=== PATIENT | male | born 1965 | race Caucasian/White ===

== ENCOUNTER 2021-04-16 07:09 | Outpatient (CLI) | payer OTHER, SELFPAY ==
--- NOTE | ~2021-04-16 | US_ITS ---
EXAMINATION: US abdomen limited EXAM DATE: 04/16/2021 07:37 INDICATION: Dyspepsia TECHNIQUE: Multiple grayscale and Doppler images of the abdomen right upper quadrant were obtained (b y a technologist who performed the scan) and subsequently reviewed. There is no prior study for milind branch. FINDINGS: The pancreatic head and body are normal in appearance. The pancreatic tail is not visualized. There is echogenic liver parenchyma, hepatic steatosis. There are no focal liver lesions identified. Th ere is no evidence of intrahepatic biliary duct dilation. Portal venous flow was seen in the hepatop edal, normal direction and has normal Doppler waveform. No right-sided hydronephrosis. Common bile duct measures 5 mm, which is normal. The gallbladder wall is normal in thickness, with ex pected amount of distention. No sonographic evidence of pericholecystic fluid. There is no cholelit hiases. Technologist performing exam reports patient did not demonstrate sonographic Mckoy's sign. Please note that this sign is less reliable in patients who have received pain medication. IMPRESSION: 1. Hepatic steatosis. Reviewed, dictated and finalized at location A. IRER AND CHECKER IMPRESSION: 1. Hepatic steatosis.
--- NOTE | ~2021-04-16 | XR_ITS ---
EXAMINATION: XR barium swallow DATE: 04/16/2021 09:48 PATIENT DAY COORDINATOR INDICATION: Dyspepsia TECHNIQUE: Thick barium contrast with gas effervescent crystals were administered orally. Fluoroscop ic images of the esophagus were obtained in various projections. The hypopharynx was also examined. T hereafter, overhead images of the thoracic esophagrus were performed. Fluroscopy time 0.7 minutesDap 10.1 FINDINGS: The esophagus is normal in caliber, without mucosal lesions or strictures. There is normal esophageal peristalsis. There is no hiatal hernia. No discreet episode of gastroesophageal reflux i s seen during the course of this study. IMPRESSION: 1. Normal barium esophagram. Reviewed, dictated and finalized at location B. ENT DAY COORDINATOR
--- NOTE | ~2021-04-16 | XR_ITS ---
EXAMINATION: XR chest 2V EXAM DATE: 04/16/2021 07:30 INDICATION: Chest pain shortness of breath x 1 year upon exertion. TECHNIQUE: Frontal and lateral projections of the chest obtained and reviewed. Comparison is made to prior examination from 06/21/2017. FINDINGS: The lungs are clear. There are no pleural effusions. The cardiomediastinal silhouette is within normal limits. There is no pneumothorax suspected. The bones and soft tissues are unremarkab le. IMPRESSION: No acute cardiopulmonary findings. Reviewed, dictated and finalized at location A. SOM TECH
== END 2021-04-16 07:10 | disposition home or self-care (01) ==
LOC: CHSIMG 07:11
PROVIDERS: PCP Internal Medicine; Visit Provider Internal Medicine
DX: R10.13 Epigastric pain (principal); R07.9 Chest pain, unspecified
CPT/HCPCS: 71046; 74220; 76705

== ENCOUNTER 2021-05-21 01:52 | Day surgery (SDC) | payer OTHER, SELFPAY ==
[2021-05-13 15:00] VITALS: BMI 30.2
[2021-05-21 06:49] VITALS: BP 123/85; PULSE 91; RESP 18; TEMP 36.2; O2SAT 99; BMI 30.9
[2021-05-21] MEDS: LACTATED RINGERS 1,000 ML 150 ML IV CONT (07:01)
--- NOTE | 2021-05-21 07:28 | P.PNAN_ITS ---
Anes - Initial Pre Proc Eval Procedure: Operation Date: 05/21/21 08:00 Proposed Procedures p Colonoscopy - Cristhian Dunbar MD Date/Time: 05/21/21 07:28 Surgeon: Cristhian Dunbar MD Pre Op Diagnosis: positive cologuard Patient Data Age: 56 Gender: M Height: 1.73 m Weight: 92.3 kg Last Vital Signs Temp 97.2 F L 05/21/21 06:49 Pulse 91 05/21/21 06:49 Resp 18 05/21/21 06:49 BP 123/85 05/21/21 06:49 Pulse Ox 99 05/21/21 06:49 Allergies Allergy/AdvReac Type Severity Reaction Status Date / Time No Known Allergies Allergy Verified 05/21/21 06:48 Home Medications Medication Instructions Recorded Confirmed Type aspirin 81 mg tablet,delayed 81 mg PO DAILY 04/07/19 05/13/21 History release cetirizine 10 mg capsule 10 mg PO DAILY PRN 05/28/20 05/13/21 History vitamin B complex 1 tablet PO DAILY 05/28/20 05/13/21 History ascorbic acid (vitamin C) 500 mg PO DAILY 05/13/21 05/13/21 History Patient hx anesthesia problems: none Family hx anesthesia problems: none Results Review: All pre-operative results and documents have been reviewed as part of the pre-operative evaluation. [facility] Past Medical History Medical History High cholesterol Surgical History Surgical History History of appendectomy History of tonsillectomy Family History Family History Father Patient's father is , Onset Age: 77 Diabetes mellitus Family history of coronary artery disease Grandparent Family history of coronary artery disease Sibling Family history of coronary artery disease Other Malignant neoplasm of prostate Other Family history of cardiovascular disease Social History Social History Smoking status: Never smoker Alcohol intake: current Alcohol use details: occasionally Substance use: never Substance use type: does not use Living arrangements: with family 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 Informed Consent: The patient's anesthetic plan and its attendant risks and benefits were discussed with the patient/family/POA. Questions were solicited and answers provided to the satisfaction of the patient/family/POA.
--- NOTE | 2021-05-21 07:44 | WPDGICN ---
Assessment and Plan Assessment and plan (1) Positive colorectal cancer screening using Cologuard test: Code(s): R19.5 - Other fecal abnormalities Status: Acute Assessment and Plan: Patient recently found a positive Cologuard test. For this reason screening colonoscopy will be performed today. Further recommendations will be given after endoscopy. (2) Rectal bleeding: Code(s): K62.5 - Hemorrhage of anus and rectum Status: Acute Assessment and Plan: Patient has intermittent rectal bleeding attributed to hemorrhoids. Hemorrhoids were identified by colonoscopy 10 years ago. High-fiber diet with fiber supplements encouraged. If rectal bleeding persists hemorrhoid surgery may need to be considered. GI Consult Note Consult date/time: 05/21/21 07:44 HPI: David Flores is a 56 year old male Presents for colonoscopy. Patient recently found to have positive Cologuard test. Patient reports intermittently he will have bright red blood per rectum attributed to hemorrhoids. He has occasional rectal discomfort. Patient reports his bowel habits are normal. When he has bleeding is typically associated with hard bowel movements. Denies any weight loss. Family history noncontributory. Patient last had a colonoscopy by our records 2011 that was unremarkable aside from hemorrhoids. He presents today for colonoscopy because of Cologuard test. Review of Systems Review of Systems: All systems reviewed & are unremarkable except as noted in HPI and below PMFSH Past Medical History Medical History High cholesterol Surgical History Surgical History History of appendectomy History of tonsillectomy Family History Family History Father Patient's father is , Onset Age: 77 Diabetes mellitus Family history of coronary artery disease Grandparent Family history of coronary artery disease Sibling Family history of coronary artery disease Other Malignant neoplasm of prostate Other Family history of cardiovascular disease Social History Social History Smoking status: Never smoker Alcohol intake: current Alcohol use details: occasionally Substance use: never Substance use type: does not use Living arrangements: with family 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 Spiritual care concerns: No Meds Home Medications and Allergies Home Medications Medication Instructions Recorded Confirmed Type aspirin 81 mg tablet,delayed 81 mg PO DAILY 04/07/19 05/13/21 History release cetirizine 10 mg capsule 10 mg PO DAILY PRN 05/28/20 05/13/21 History vitamin B complex 1 tablet PO DAILY 05/28/20 05/13/21 History ascorbic acid (vitamin C) 500 mg PO DAILY 05/13/21 05/13/21 History Allergies Allergy/AdvReac Type Severity Reaction Status Date / Time No Known Allergies Allergy Verified 05/21/21 06:48 Vital Signs Vital Signs - 24 hr 05/21/21 06:49 Temperature 97.2 F L Pulse Rate 91 Respiratory Rate 18 Blood Pressure 123/85 Pulse Oximetry 99 Exam Narrative: Physical exam reveals patient to be alert. Vital signs stable. HEENT exam is unremarkable. Patient is anicteric. Lungs are clear to auscultation and percussion. Heart is without murmur or extra sounds. Abdominal exam bowel sounds are present soft nontender with no hepatosplenomegaly. Digital external rectal exam is normal.
[2021-05-21 08:09] VITALS: BP 108/63; PULSE 76; RESP 20; O2SAT 95
[2021-05-21 08:19] VITALS: BP 94/57; PULSE 72; RESP 15; O2SAT 97
[2021-05-21 08:29] VITALS: BP 112/71; PULSE 70; RESP 16; O2SAT 95
== END 2021-05-21 08:47 | disposition home or self-care (01) ==
PROVIDERS: PCP Internal Medicine; Visit Provider Internal Medicine Gastroenterology
PROC: 0DJD8ZZ Inspection of Lower Intestinal Tract, Via Natural or Artificial Opening Endoscopic (ICD-10-PCS; CPT 45378; principal; 2021-05-21 08:00)
DX: R19.5 Other fecal abnormalities (principal); K62.5 Hemorrhage of anus and rectum; K64.8 Other hemorrhoids; K57.30 Diverticulosis of large intestine without perforation or abscess without bleeding; E78.00 Pure hypercholesterolemia, unspecified; Z79.82 Long term (current) use of aspirin; E66.9 Obesity, unspecified; Z68.30 Body mass index [BMI] 30.0-30.9, adult
CPT/HCPCS: 45378; J2704; J7120

== ENCOUNTER 2021-11-07 01:00 | Day surgery (SDC) | payer OTHER, SELFPAY ==
[2021-11-06 13:09] VITALS: BMI 30.4
[2021-11-07] VITALS (8 sets, daily range): BP systolic 98–123; BP diastolic 68–88; PULSE 63–73; RESP 12–17; TEMP 36.5; O2SAT 94–99; BMI 31.4
[2021-11-07 08:09] LABS: Basophils Absolute Auto 0.1 K/mm3 (0.0-0.1); Basophils Percent Auto 0.8 % (0.2-1.2); Eosinophils Absolute Auto 0.3 K/mm3 (0-0.3); Eosinophils Percent Auto 4.7 % (0-4.4); Hematocrit 45.1 % (42.0-52.0); Hemoglobin 15.3 g/dL (14.0-18.0); Immature Granulocyte Absolute 0.02 K/mm3 (0.00-0.031); Immature Granulocyte Percent A 0.3 % (0-0.5); Lymphocytes Absolute Auto 2.02 K/mm3 (0.9-3.2); Lymphocytes Percent Auto 27.9 % (18.3-44.2); Mean Corpuscular HGB Conc 33.9 g/dl (32-36); Mean Corpuscular Hemoglobin 30.2 pg (26-34); Mean Platelet Volume 8.8 fl (7.4-10.4); Monocytes Absolute Auto 0.6 K/mm3 (0.1-0.6); Monocytes Percent Auto 8.6 % (2.6-8.5); Neutrophils Absolute Auto 4.2 K/mm3 (1.3-6.7); Neutrophils Percent Auto 57.7 % (45.5-73.1); Platelet Count Result 242 k/mm3 (150-375); Red Blood Count 5.07 M/mm3 (4.6-6.20); Red Cell Distribution Width 12.6 % (11.5-14.5); White Blood Count 7.2 K/mm3 (4.5-10.0)
[2021-11-07 08:22] LABS: Anion Gap 6 mmol/L (8-16); Blood Urea Nitrogen 19 mg/dL (9-20); Calcium 8.6 mg/dL (8.4-10.2); Carbon Dioxide 31 mmol/L (22-30); Chloride 102 mmol/L (98-107); Estimated CRCL calculation 80 ml/min; Estimated Glomerular Filt Rate > 60; Glucose 96 mg/dL (65-110); Potassium 4.1 mmol/L (3.4-5.0); Sodium 139 mmol/L (137-145)
[2021-11-07 08:35] LABS: INR 0.9
--- NOTE | 2021-11-07 09:14 | PM.IMHP ---
H&P: HPI History of Present Illness Date/Time: 11/07/21 09:15 Chief Complaint: Patient is here for cardiac catheterization Narrative: this is a 56-year-old patient with past history of hyperlipidemia, GERD, who was evaluated for chest pain. Underwent stress test that was negative for ischemia however he reports strong family history for coronary artery disease as his dad had myocardial infarction at age 62. He describes his chest pain mainly on exertion and after doing the stress test he called our office because he continued to have chest pain and pressure upon exertion like cutting g shows it resolves when he rests. Denies shortness of breath, lower extremity edema, dizziness or syncope. Review of Systems Constitutional: Constitutional: Denies chills, Denies fever(s) and Denies poor appetite Eyes: Eyes: Denies eye discharge, Denies loss of vision, Denies eye pain and Denies photophobia ENT: Denies dizziness, Denies epistaxis, Denies nasal congestion and Denies sore throat Cardiovascular: Cardiovascular: Reports chest pain, Denies syncope, Denies pedal edema, Denies leg edema, Denies palpitations, Denies dyspnea, Denies dyspnea on exertion and Denies orthopnea Respiratory: Respiratory: Denies cough, Denies dyspnea, Denies dyspnea on exertion and Denies wheezing Gastrointestinal: Gastrointestinal: Denies abdominal pain, Denies diarrhea, Denies nausea and Denies vomiting Genitourinary: Genitourinary: Denies hematuria, Denies genital lesions and Denies dysuria Musculoskeletal: Musculoskeletal: Denies arthralgias, Denies joint swelling and Denies numbness Integumentary/Breasts: Skin/Breast: Denies pruritus and Denies rash Neurologic: Denies dizziness, Denies syncope, Denies loss of vision and Denies numbness Psychiatric: Psychiatric: Denies anxiety and Denies depression Endocrine: Endocrine: Denies cold intolerance, Denies heat intolerance and Denies palpitations Hematologic/Lymphatic: Hematologic/Lymphatic: Denies easy bleeding and Denies easy bruising Allergic/Immunologic: Allergic/Immunologic: Denies urticaria and Denies wheezing PMFSH Past Medical History Medical History High cholesterol Surgical History Surgical History History of appendectomy History of tonsillectomy Family History Family History Father Patient's father is , Onset Age: 77 Diabetes mellitus Family history of coronary artery disease Grandparent Family history of coronary artery disease Sibling Family history of coronary artery disease Other Malignant neoplasm of prostate Other Family history of cardiovascular disease Social History Social History Smoking status: Never smoker Second hand tobacco smoke exposure: No Alcohol intake: current Drinks per week: 2 Alcohol use details: occasionally. Substance use: never Substance use type: does not use Living arrangements: with family Additional occupation/education comments: [employer] Spiritual care concerns: No Meds Home Medications and Allergies Home Medications Medication Instructions Recorded Confirmed Type aspirin 81 mg tablet,delayed 81 mg PO DAILY 04/07/19 11/06/21 History release (Adult Low Dose Aspirin) cetirizine 10 mg capsule (All Day 10 mg PO DAILY PRN Allergic 05/28/20 11/06/21 History Allergy (cetirizine)) Symptoms vitamin B complex (B 1 tablet PO DAILY 05/28/20 11/06/21 History Complex-Vitamin B12 tablet) ascorbic acid (vitamin C) 500 mg 500 mg PO DAILY 05/13/21 11/06/21 History tablet alirocumab 75 mg/mL subcutaneous 75 mg subcut Q14D 11/06/21 11/06/21 History pen injector (Praluent Pen) cholecalciferol (vitamin D3) 50 2,000 unit PO DAILY 11/06/21 11/06/21 History mcg (2,000 unit) tablet (Vi
--- NOTE | 2021-11-07 09:18 | WPDMODSED ---
Moderate Sedation Note-Pt Data Patient Data Diagnosis: Exertion or chest pain Present Complaint: chest pain Procedure to be performed/Plan: coronary angiogram and left heart catheterization Allergies Allergy/AdvReac Type Severity Reaction Status Date / Time No Known Allergies Allergy Verified 11/07/21 07:48 Home Medications Medication Instructions Recorded Confirmed Type aspirin 81 mg tablet,delayed 81 mg PO DAILY 04/07/19 11/06/21 History release (Adult Low Dose Aspirin) cetirizine 10 mg capsule (All Day 10 mg PO DAILY PRN Allergic 05/28/20 11/06/21 History Allergy (cetirizine)) Symptoms vitamin B complex (B 1 tablet PO DAILY 05/28/20 11/06/21 History Complex-Vitamin B12 tablet) ascorbic acid (vitamin C) 500 mg 500 mg PO DAILY 05/13/21 11/06/21 History tablet alirocumab 75 mg/mL subcutaneous 75 mg subcut Q14D 11/06/21 11/06/21 History pen injector (Praluent Pen) cholecalciferol (vitamin D3) 50 2,000 unit PO DAILY 11/06/21 11/06/21 History mcg (2,000 unit) tablet (Vitamin D3) docosahexaenoic acid (dha)-epa 1 cap PO DAILY 11/06/21 11/06/21 History capsule zinc gluconate 50 mg tablet 50 mg PO DAILY 11/06/21 11/06/21 History Current Medications: Active Medications Sodium Chloride (Normal Saline Iv) 500 mls @ 100 mls/hr IV CONT .Q5H ELVIN Sedation/Anesthesia: No previous sedation/anesthesia problems (including family history). [facility] Past Medical History Medical History High cholesterol Surgical History Surgical History History of appendectomy History of tonsillectomy Family History Family History Father Patient's father is , Onset Age: 77 Diabetes mellitus Family history of coronary artery disease Grandparent Family history of coronary artery disease Sibling Family history of coronary artery disease Other Malignant neoplasm of prostate Other Family history of cardiovascular disease Social History Social History Smoking status: Never smoker Second hand tobacco smoke exposure: No Alcohol intake: current Drinks per week: 2 Alcohol use details: occasionally. 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 care concerns: No Mod Sed Physical Exam Physical Exam Pre Procedural Exam: Normal: Appearance, Eyes, Ears, Nose, Neck, Throat, Airway, Lungs, Heart Size, Heart Rate, Heart Rhythm, Neuro Exam, Abdomen, Liver, Kidneys, Spleen, Breasts, Genitalia, Extremities and Skin Hours since solid foods: 8 Hours since liquid intake: 8 Mallampati Classification: class 1 Internal Medicine - PN: Obj Da Vital Signs Vital Signs: Vital Signs - 24 hr 11/07/21 07:52 Temperature 36.5 C Pulse Rate 73 Respiratory Rate 17 Blood Pressure 122/81 Pulse Oximetry 98 Oxygen Delivery Room Air Meds/Results Medications: Active Medications Generic Name Dose Route Start Last Admin Trade Name Freq PRN Reason Stop Dose Admin Sodium Chloride 500 mls @ 100 mls/hr 11/07/21 07:30 Normal Saline Iv IV CONT .Q5H ELVIN Labs CBC & Chem 7: 11/07/21 07:50 11/07/21 07:50 Labs: Laboratory Results - last 24 hr 11/07/21 11/07/21 11/07/21 07:50 07:50 07:50 WBC 7.2 RBC 5.07 Hgb 15.3 Hct 45.1 MCV 89.0 MCH 30.2 MCHC 33.9 RDW 12.6 Plt Count 242 MPV 8.8 Immature Gran % (Auto) 0.3 Neut % (Auto) 57.7 Lymph % (Auto) 27.9 [place] % (Auto) 8.6 H Eos % (Auto) 4.7 H Baso % (Auto) 0.8 Lymph # (Auto) 2.02 [place] # (Auto) 0.6 Eos # (Auto) 0.3 Baso # (Auto) 0.1 Abs Immat Gran (auto) 0.02 Absolute Neuts (auto) 4.2 Absolute Nu
--- NOTE | 2021-11-07 09:19 | WPDCARDPROC ---
Cardiac Cath Procedure Note Date of procedure:: 11/07/21 Performing physician:: Agustina Medley MD date of service November 07, 2021 Indication:: exertion chest pain Brief clinical history:: this is a 56-year-old patient with past history of hyperlipidemia, GERD, who was evaluated for chest pain.? Underwent stress test that was negative for ischemia however he reports strong family history for coronary artery disease as his dad had myocardial infarction at age 62.? He describes his chest pain mainly on exertion and after doing the stress test he called our office because he continued to have chest pain and pressure upon exertion like cutting g shows it resolves when he rests.? Denies shortness of breath, lower extremity edema, dizziness or syncope. Procedure Procedure performed:: 1-Moderate sedation that started at 9:22 a.m.and ended at 951 using 2mg of Versed and 50mcg fentanyl. The registered nurse was luis manuel sequeira. 2-Selective left and right coronary angiogram. 3-Left heart catheterization with measurement of LVEDP and measurement of gradient across aortic valve. 3- LV angiogram. 4-Right common femoral arterial angiogram. 5-Deployment of 6 [place] Angio-Seal. Sedation/Medication given:: Moderate sedation. Access site:: Right common femoral artery. Estimated blood loss:: 10cc Procedure note:: After informed consent patient was brought in to salvage laborer with the was draped and prepped in usual manner. Moderate sedation was given and the right groin was infiltrated using 1% lidocaine. Five [place] sheath was obtained using micropuncture needle and the modified Seldinger technique. Selective left coronary angiogram was done using JL4 catheter with the tip of the catheter placed in the left main coronary artery. Selective right coronary angiogram was done using JR4 catheter with the tip of the catheter placed to the right coronary artery. After that 5 [place] pigtail catheter was advanced across the aortic valve into the left ventricle with measurement of LVEDP and measurement of gradient across aortic valve. LV angiogram was done as well.Right common femoral arterial angiogram was done. Findings:: 1- left coronary artery is a large artery that divides into large LAD, large circumflex artery. Left main is Free of disease. 2- left anterior descending artery is a large artery that runs and wraps around the apex. Free of disease. Large diagonal branch proximally free of disease. 3- leftcircumflex artery is a large artery Free of disease. Small to medium-sized OM1 free of disease and large OM2 free of disease. 4- right coronary artery is Large artery and dominant and free of disease 5- LVEDP was 10 mm Hgand no gradient across aortic valve. 5- LV angiogram shows ejection fraction 65%. No wall motion abnormalities. 6- opening arterial pressure was 130/80 and closing pressure was 120 over 70 7- right femoral artery angiogram shows no significant disease in the right common femoral artery. Conclusion:: - no CAD. Assessment and Plan Assessment and plan (1) Exertional chest pain: Code(s): R07.9 - Chest pain, unspecified Status: Acute Plan continue risk factor modification for CAD
--- NOTE | 2021-11-07 11:07 | SUR.PHASEII ---
This RN called & spoke with . Informed her of discharge time and instructions.
== END 2021-11-07 12:56 | disposition home or self-care (01) ==
PROVIDERS: PCP Internal Medicine; Visit Provider Internal Medicine Cardiovascular Disease
PROC: 4A023N7 Measurement of Cardiac Sampling and Pressure, Left Heart, Percutaneous Approach (ICD-10-PCS; CPT 93452; principal; 2021-11-07 09:00)
DX: R07.9 Chest pain, unspecified (principal); E78.5 Hyperlipidemia, unspecified; K21.9 Gastro-esophageal reflux disease without esophagitis; Z82.49 Family history of ischemic heart disease and other diseases of the circulatory system; Z79.82 Long term (current) use of aspirin
CPT/HCPCS: 36415; 80048; 85025; 85610; 93458; C1760; C1887; C1894; G0269; J1644; J2250; J3010; J7040

== ENCOUNTER 2021-11-20 09:49 | Outpatient (CLI) | payer OTHER, SELFPAY ==
--- NOTE | ~2021-11-20 | CT_ITS ---
EXAMINATION: CTA chest DATE: 11/20/2021 10:13 INDICATION: Shortness of breath, chest tightness. Family history of aneurysm. TECHNIQUE: Computed tomography angiography (CTA) of the chest was performed with 100 mL Omnipaque-350 intravenous contrast timed to evaluate the pulmonary arteries. Coronal maximum intensity projection 3D-reconstructions were created by the technologist. Automated exposure control and iterative reconst ruction technique were employed. Exam dose: 516.52 mGy-cm total exam DLP. COMPARISON: 04/16/2021 PA and lateral chest FINDINGS: The ascending aorta measures up to 4.5 cm diameter. 2.6 cm diameter at the mid aortic arch and 2.2 cm diameter the descending thoracic aorta, normal. Normal heart size. No pericardial or pleural effusion. No hilar or mediastinal mass lesion or lymphadenopathy. Mild probably lower lobe dependent atelectasis. No pulmonary consolidation or mass lesion is detected . Small probable fissural node of the lateral aspect of the left greater fissure (series 4 image 59). Hepatic steatosis. Included portions of the adrenal glands are unremarkable. Diffuse idiopathic skeletal hyperostosis of the thoracic spine. Degenerative disease in the lower cer vical spine. IMPRESSION: 4.5 cm ascending aortic aneurysm; no aortic dissection Hepatic steatosis Reviewed, dictated and finalized at Location A. Reviewed, dictated and finalized at location B.
== END 2021-11-20 09:50 | disposition home or self-care (01) ==
LOC: ANHIMG 09:50
PROVIDERS: PCP Internal Medicine; Visit Provider Internal Medicine Cardiovascular Disease
DX: R07.89 Other chest pain (principal); I71.4 Abdominal aortic aneurysm, without rupture; K76.0 Fatty (change of) liver, not elsewhere classified
CPT/HCPCS: 71275; Q9967

== ENCOUNTER 2022-01-30 09:14 | Outpatient (CLI) | payer OTHER, SELFPAY ==
--- NOTE | ~2022-01-30 | XR_ITS ---
EXAMINATION: XR heel RT min 2V DATE: 01/30/2022 09:52 INDICATION: Right Achilles tendinitis, chronic. TECHNIQUE: 2 views of right calcaneus on 3 radiographs were obtained. COMPARISON: None. FINDINGS: Bone alignment is normal. No fracture. There is mild osteoarthritis of the ankle joint and talonavicular joint characterized by tiny osteophytes. There are enthesophytes at the posterior and p lantar aspects of calcaneal tuberosity. IMPRESSION: 1. Polyarticular osteoarthritis. Reviewed, dictated and finalized at location A. TABLE THINNER
--- NOTE | ~2022-01-30 | XR_ITS ---
EXAMINATION: XR ankle RT min 3V DATE: 01/30/2022 09:52 INDICATION: Chronic right Achilles tendinitis. TECHNIQUE: 4 views of right ankle were obtained. COMPARISON: None. FINDINGS: Bone alignment is normal. No fracture. There is heterotopic ossification distal to medial m alleolus. There is mild osteoarthritis of the ankle and talonavicular joints. There are enthesophytes at the posterior and plantar aspects of calcaneal tuberosity. IMPRESSION: 1. Polyarticular osteoarthritis. Reviewed, dictated and finalized at location A. 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
== END 2022-01-30 09:15 | disposition home or self-care (01) ==
PROVIDERS: PCP Internal Medicine; Visit Provider Internal Medicine Cardiovascular Disease
DX: I71.21 Aneurysm of the ascending aorta, without rupture (principal); Z82.49 Family history of ischemic heart disease and other diseases of the circulatory system; M76.61 Achilles tendinitis, right leg; M15.9 Polyosteoarthritis, unspecified
CPT/HCPCS: 73610; 73650

== ENCOUNTER 2022-12-22 15:30 | Outpatient (CLI) | payer OTHER, SELFPAY ==
--- NOTE | ~2022-12-22 | XR_ITS ---
EXAM: XR abdomen obstructive series DATE: 12/22/2022 15:55 HISTORY: EPIGASTRIC pain, bloating X 12 HOURS . COMPARISON: None available. FINDINGS: Clear lung bases. Normal bowel gas pattern. No organomegaly. No abnormal abdominal calcifi cation. Regional bones and soft tissues normal for age. IMPRESSION: No radiographic evidence of obstruction or ileus. Reviewed, dictated and finalized at location K.
[2022-12-22 15:50] LABS: Appearance Urine Clear (Clear); Basophils Absolute Auto 0.04 K/mm3 (0.00-0.10); Basophils Percent Auto 0.4 % (0.0-1.0); Bilirubin Urine Negative (Negative); Blood Urine Negative (Negative); Color Urine Yellow (Yellow); Eosinophils Absolute Auto 0.33 K/mm3 (0.02-0.50); Eosinophils Percent Auto 3.3 % (1.0-6.0); Glucose Urine UA Negative (Negative); Hematocrit 44.8 % (40.0-54.0); Hemoglobin 15.2 g/dL (14.0-18.0); Immature Granulocyte Absolute 0.02 K/mm3 (0.00-0.00); Immature Granulocyte Percent A 0.2 % (0.0-0.0); Ketones Urine Negative (Negative); Leukocyte Esterase Ur Negative (Negative); Lymphocytes Absolute Auto 2.02 K/mm3 (1.10-4.50); Mean Corpuscular HGB Conc 33.9 g/dL (32.0-36.0); Mean Corpuscular Hemoglobin 30.5 pg (27.0-31.0); Mean Corpuscular Volume 89.8 fL (78.0-102.0); Mean Platelet Volume 8.9 fl (8.7-11.0); Monocytes Absolute Auto 0.74 K/mm3 (0.10-0.90); Monocytes Percent Auto 7.3 % (2.0-11.0); Neutrophils Percent Auto 68.8 % (50.0-70.0); Nitrate Urine Negative (Negative); Platelet Count Result 250 K/mm3 (150-420); Protein Urine Negative (Negative); Red Blood Count 4.99 M/mm3 (4.70-6.10); Specific Grav Ur 1.025 (1.010-1.020); Urobilinogen Urine 0.2 mg/dL (0.2-1.0); White Blood Count 10.1 K/mm3 (4.8-10.8)
[2022-12-22 15:56] LABS: Add Urine Microscopic? NO
[2022-12-22 16:17] LABS: Alanine Aminotransferase 35 U/L (16-63); Albumin Level 3.7 g/dL (3.4-5.0); Alkaline Phosphatase 90 U/L (46-116); Amylase 541 U/L (25-115); Anion Gap 8 mmol/L (8-16); Aspartate Amino Transferase 18 U/L (15-37); Bilirubin,Total 1.3 mg/dL (0.00-1.00); Blood Urea Nitrogen 13 mg/dL (7-18); Calcium 9.1 mg/dL (8.5-10.1); Carbon Dioxide 29 mmol/L (21-32); Chloride 104 mmol/L (98-108); Estimated Glomerular Filt Rate > 60; Glucose 89 mg/dL (70-99); Osmolality Calculated 291 mOsm/kg (285-295); Potassium 4.2 mmol/L (3.5-5.1); Sodium 141 mmol/L (136-145); Total Protein 6.8 g/dL (6.4-8.2)
[2022-12-22 16:44] LABS: Lipase 2815 U/L (16-77)
[2022-12-22 17:15] LABS: Creatine Kinase 123 U/L (39-308); Troponin I 4.5 ng/L (0.00-60.4)
== END 2022-12-22 15:31 | disposition home or self-care (01) ==
LOC: CHSLAB 15:33
PROVIDERS: PCP Internal Medicine; Visit Provider Internal Medicine
DX: R10.9 Unspecified abdominal pain (principal); R14.0 Abdominal distension (gaseous); R10.13 Epigastric pain
CPT/HCPCS: 36415; 74019; 80053; 81003; 82150; 82550; 82553; 83690; 84484; 85025

== ENCOUNTER 2022-12-23 09:55 | Outpatient (CLI) | payer OTHER, SELFPAY ==
--- NOTE | ~2022-12-23 | CT_ITS ---
EXAMINATION: CT abdomen pelvis w con DATE: 12/23/2022 10:21 INDICATION: Acute pancreatitis TECHNIQUE: Computed tomography (CT) of the abdomen and pelvis was performed with 100 mL Omnipaque-350 intravenous contrast. Automated exposure control and iterative reconstruction technique were employe d. The dose-length product was 727.54 mGy-cm. COMPARISON: None FINDINGS: Mild discoid atelectasis at the lingula with additional mild dependent atelectasis in the bilateral l ower lobes. Heart size is normal. No pericardial or pleural effusion. Liver, gallbladder, spleen, antonio ateral adrenal glands and kidneys are normal. There is inflammatory stranding about the uncinate proc ess of the pancreas consistent with acute interstitial pancreatitis. No discrete peripancreatic fluid collections. Normal parenchymal enhancement throughout the pancreas with no evident necrosis. No int ra or extra hepatic biliary ductal dilation and no evident dilation of the main pancreatic duct. Port al, splenic and superior mesenteric veins are all patent. Bowels are unremarkable. Bladder is normal. No free intraperitoneal gas or fluid. No pathologically enlarged abdominal or pelvic lymphadenopathy . Mild lumbar and lower thoracic spondylosis. Mild to moderate bilateral hip osteoarthritis. Anterior osteophytes at the bilateral sacroiliac joints, bridging on the right and nearly bridging on the lef t. IMPRESSION: 1. Radiographically uncomplicated acute interstitial pancreatitis at the uncinate process. Reviewed, dictated and finalized at location A. IMPRESSION: 1. Radiographically uncomplicated acute interstitial pancreatitis at the uncina te process.
== END 2022-12-23 09:56 | disposition home or self-care (01) ==
PROVIDERS: PCP Internal Medicine; Visit Provider Internal Medicine
DX: K85.90 Acute pancreatitis without necrosis or infection, unspecified (principal)
CPT/HCPCS: 74177; Q9967

== ENCOUNTER 2022-12-24 09:08 | Outpatient (CLI) | payer OTHER, SELFPAY ==
[2022-12-24 09:20] LABS: Basophils Absolute Auto 0.03 K/mm3 (0.00-0.10); Basophils Percent Auto 0.5 % (0.0-1.0); Eosinophils Absolute Auto 0.34 K/mm3 (0.02-0.50); Eosinophils Percent Auto 5.1 % (1.0-6.0); Hematocrit 42.2 % (40.0-54.0); Hemoglobin 14.3 g/dL (14.0-18.0); Immature Granulocyte Absolute 0.02 K/mm3 (0.00-0.00); Immature Granulocyte Percent A 0.3 % (0.0-0.0); Lymphocytes Absolute Auto 1.63 K/mm3 (1.10-4.50); Lymphocytes Percent Auto 24.5 % (18.0-42.0); Mean Corpuscular HGB Conc 33.9 g/dL (32.0-36.0); Mean Corpuscular Hemoglobin 30.4 pg (27.0-31.0); Mean Corpuscular Volume 89.8 fL (78.0-102.0); Mean Platelet Volume 8.8 fl (8.7-11.0); Monocytes Absolute Auto 0.64 K/mm3 (0.10-0.90); Monocytes Percent Auto 9.6 % (2.0-11.0); Platelet Count Result 230 K/mm3 (150-420); White Blood Count 6.6 K/mm3 (4.8-10.8)
[2022-12-24 10:06] LABS: Alanine Aminotransferase 25 U/L (16-63); Albumin Level 3.5 g/dL (3.4-5.0); Alkaline Phosphatase 82 U/L (46-116); Amylase 203 U/L (25-115); Anion Gap 6 mmol/L (8-16); Aspartate Amino Transferase 20 U/L (15-37); Bilirubin,Total 1.3 mg/dL (0.00-1.00); Blood Urea Nitrogen 14 mg/dL (7-18); Calcium 9.2 mg/dL (8.5-10.1); Carbon Dioxide 29 mmol/L (21-32); Chloride 105 mmol/L (98-108); Estimated Glomerular Filt Rate > 60; Glucose 95 mg/dL (70-99); Osmolality Calculated 290 mOsm/kg (285-295); Potassium 4.4 mmol/L (3.5-5.1); Sodium 140 mmol/L (136-145); Total Protein 6.6 g/dL (6.4-8.2)
[2022-12-24 10:15] LABS: Lipase 743 U/L (16-77)
== END 2022-12-24 09:09 | disposition home or self-care (01) ==
PROVIDERS: PCP Internal Medicine; Visit Provider Internal Medicine
DX: K85.90 Acute pancreatitis without necrosis or infection, unspecified (principal)
CPT/HCPCS: 36415; 80053; 82150; 83690; 85025

== ENCOUNTER 2022-12-26 10:12 | Outpatient (CLI) | payer OTHER, SELFPAY ==
[2022-12-26 10:32] LABS: Basophils Absolute Auto 0.04 K/mm3 (0.00-0.10); Basophils Percent Auto 0.8 % (0.0-1.0); Eosinophils Absolute Auto 0.25 K/mm3 (0.02-0.50); Eosinophils Percent Auto 4.8 % (1.0-6.0); Hematocrit 43.4 % (40.0-54.0); Hemoglobin 14.8 g/dL (14.0-18.0); Immature Granulocyte Absolute 0.01 K/mm3 (0.00-0.00); Immature Granulocyte Percent A 0.2 % (0.0-0.0); Lymphocytes Percent Auto 34.8 % (18.0-42.0); Mean Corpuscular HGB Conc 34.1 g/dL (32.0-36.0); Mean Corpuscular Hemoglobin 30.5 pg (27.0-31.0); Mean Corpuscular Volume 89.3 fL (78.0-102.0); Mean Platelet Volume 8.6 fl (8.7-11.0); Monocytes Absolute Auto 0.51 K/mm3 (0.10-0.90); Monocytes Percent Auto 9.9 % (2.0-11.0); Neutrophils Absolute Auto 2.6 K/mm3 (1.7-7.2); Neutrophils Percent Auto 49.5 % (50.0-70.0); Platelet Count Result 270 K/mm3 (150-420); Red Blood Count 4.86 M/mm3 (4.70-6.10); Red Cell Distribution Width 11.8 % (11.6-14.4); White Blood Count 5.2 K/mm3 (4.8-10.8)
[2022-12-26 11:21] LABS: Alanine Aminotransferase 38 U/L (16-63); Albumin Level 3.6 g/dL (3.4-5.0); Alkaline Phosphatase 78 U/L (46-116); Amylase 63 U/L (25-115); Anion Gap 6 mmol/L (8-16); Aspartate Amino Transferase 18 U/L (15-37); Bilirubin,Total 0.7 mg/dL (0.00-1.00); Blood Urea Nitrogen 22 mg/dL (7-18); Calcium 9.5 mg/dL (8.5-10.1); Carbon Dioxide 29 mmol/L (21-32); Chloride 104 mmol/L (98-108); Estimated Glomerular Filt Rate > 60; Glucose 86 mg/dL (70-99); Lipase 99 U/L (16-77); Osmolality Calculated 290 mOsm/kg (285-295); Potassium 4.7 mmol/L (3.5-5.1); Sodium 139 mmol/L (136-145); Total Protein 6.9 g/dL (6.4-8.2)
== END 2022-12-26 10:13 | disposition home or self-care (01) ==
PROVIDERS: PCP Internal Medicine; Visit Provider Internal Medicine
DX: K85.90 Acute pancreatitis without necrosis or infection, unspecified (principal)
CPT/HCPCS: 36415; 80053; 82150; 83690; 85025

== ENCOUNTER 2023-01-29 07:09 | Outpatient (CLI) | payer OTHER, SELFPAY ==
--- NOTE | ~2023-01-29 | CT_ITS ---
EXAMINATION: CTA chest DATE: 01/29/2023 07:42 INDICATION: Aneurysm of the ascending aorta TECHNIQUE: Computed tomographic angiography (CTA) of the chest was performed with 100 mL Omnipque-350 intravenous contrast. Maximum intensity projection 3D-reconstructions of the aorta and other arterie s were constructed by the technologist on a separate workstation. The dose-length product (DLP) was 6 07.61 mGy-cm. Automated exposure control and iterative reconstruction technique were employed. COMPARISON: 11/20/2021 FINDINGS: The ascending aorta measures 3.3 cm at the sinuses of Valsalva, 4 cm at the level of the ma in pulmonary artery, and up to 2.3 cm in the descending aorta. There is no dissection. Mild bilateral gynecomastia is noted. No pathologically enlarged thoracic lymph nodes are identified. The heart siz e is normal. There is a stable 3 mm nodule of the left major fissure, likely a fissural lymph node. T here is mild dependent atelectasis. The lungs are free of focal airspace opacities. No pleural effusi on or pneumothorax. There is mild thoracic spondylosis. IMPRESSION: 1. Ectasia of the ascending aorta measuring up to 4 cm. No dissection. Reviewed, dictated and finalized at location L. EDURE ANALYST
== END 2023-01-29 07:10 | disposition home or self-care (01) ==
PROVIDERS: PCP Internal Medicine; Visit Provider Internal Medicine Cardiovascular Disease
DX: I71.40 Abdominal aortic aneurysm, without rupture, unspecified (principal)
CPT/HCPCS: 71275; Q9967

== ENCOUNTER 2023-06-06 23:23 | Emergency (ER) | payer OTHER, SELFPAY ==
--- NOTE | ~2023-06-06 | CT_ITS ---
EXAMINATION: CT abdomen pelvis wo con DATE: 06/07/2023 00:57 INDICATION: Dysuria. TECHNIQUE: Computed tomography (CT) of the abdomen and pelvis was performed without intravenous contr ast. Automated exposure control and iterative reconstruction technique were employed. The dose-length product was 483.00 mGy-cm. COMPARISON: 12/23/2022 FINDINGS: Unchanged mild discoid atelectasis/scarring at the lingula. Heart size is normal. No pericardial or p leural effusion. Liver, gallbladder, spleen, pancreas and bilateral adrenal glands are normal. Kidney s and ureters are normal with no urolithiasis, hydroureteronephrosis or perinephric/ureteral strandin g. Bowels are normal with no abnormal wall thickening or obstruction. Bladder is normal. Mild prostat omegaly measuring 3.8 x 3.2 cm. There is increased density to the bilateral epididymides. Small left hydrocele. No free intraperitoneal gas or fluid. No pathologically enlarged abdominal or pelvic lymph adenopathy. Small fat-containing umbilical hernia. Mild thoracic and lumbar spondylosis. IMPRESSION: 1. Nonspecific increased density to the bilateral epididymides and small left hydrocele. 2. No acute intra-abdominal/pelvic process. Reviewed, dictated and finalized at location A. IMPRESSION: 1. Nonspecific increased density to the bilateral epididymides and small left h ydrocele. 2. No acute intra-abdominal/pelvic process.
[2023-06-06 23:37] VITALS: BP 149/95; PULSE 79; RESP 16; TEMP 36.1; O2SAT 96
[2023-06-07 00:06] LABS: Appearance Urine Clear (Clear); Bilirubin Urine Negative (Negative); Blood Urine Negative (Negative); Color Urine Yellow (Yellow); Glucose Urine UA Negative (Negative); Ketones Urine Negative (Negative); Leukocyte Esterase Ur Negative LEU/UL (Negative); Nitrate Urine Negative (Negative); Protein Urine Negative (Negative); Specific Grav Ur 1.023 (1.001-1.035); Urobilinogen Urine 0.2 mg/dL (<2.0)
[2023-06-07 00:16] VITALS: BP 123/82; PULSE 73; RESP 15; O2SAT 97
[2023-06-07 00:16] LABS: Add Urine Microscopic? NO
--- NOTE | 2023-06-07 00:46 | ED.GENADULT ---
HPI - General Adult General Chief complaint: Urogenital-Male Stated complaint: difficulty urinating Time Seen by Provider: 06/07/23 00:30 History of Present Illness HPI narrative: patient is a 8-year-old gentleman who presents emergency department with chief complaint difficulty urinating. The patient states this afternoon he has noticed that he has had decreased urine output and reports that it is hard to start a strain. Patient reports no flank pain but does report that he has some suprapubic discomfort patient denies blood in his urine denies any urethral discharge patient denies any trauma denies any other ulcerations or lesions. Related Data Home Medications Medication Instructions Recorded Confirmed aspirin 81 mg tablet,delayed 81 mg PO DAILY 04/07/19 02/26/23 release (Adult Low Dose Aspirin) cetirizine 10 mg capsule (All Day 10 mg PO DAILY PRN Allergic 05/28/20 02/26/23 Allergy (cetirizine)) Symptoms ascorbic acid (vitamin C) 500 mg 500 mg PO DAILY 05/13/21 02/26/23 tablet alirocumab 75 mg/mL subcutaneous 75 mg subcut Q14D 11/06/21 02/26/23 pen injector (Praluent Pen) cholecalciferol (vitamin D3) 50 2,000 unit PO DAILY 11/06/21 02/26/23 mcg (2,000 unit) tablet (Vitamin D3) zinc gluconate 50 mg tablet 50 mg PO DAILY 11/06/21 02/26/23 Allergies Allergy/AdvReac Type Severity Reaction Status Date / Time [id number] Reductase AdvReac Other Verified 02/26/23 15:56 Inhibitor Review of Systems Review of Systems: A 10 system review of systems was completed on the patient and is negative except for what is stated in the HPI. Nursing and ancillary documentation was reviewed. [facility] Past Medical History Medical History High cholesterol Surgical History Surgical History History of appendectomy History of tonsillectomy Family History Family History Father Patient's father is , Onset Age: 77 Diabetes mellitus Family history of coronary artery disease Grandparent Family history of coronary artery disease Sibling Family history of coronary artery disease Other Malignant neoplasm of prostate Other Family history of cardiovascular disease Social History Social History Smoking status: Never smoker Second hand tobacco smoke exposure: No Alcohol intake: current Drinks per week: 1 Alcohol use details: occasionally. Substance use: never Substance use type: does not use Living arrangements: with family Occupation/Education: occupation Additional occupation/education comments: [employer] Spiritual care concerns: No Exam Narrative: GENERAL: Well-appearing, well-nourished, and in no acute distress. HEAD: Normocephalic, atraumatic. EYES: PERRLA and EOMI. ENT: Nares clear, no rhinorrhea or epistaxis. Mucous membranes moist. NECK: Supple. CHEST: Clear to auscultation. No respiratory distress. HEART: Regular rate and rhythm. No murmur heard. Normal peripheral pulses. ABDOMEN: Soft, Mild suprapubic tenderness, nondistended, normal active bowel sounds. EXTREMITIES: Normal range of motion. No edema. SKIN: Warm, dry, no rash. NEURO: No focal deficits. Alert and oriented x3. PSYCH: Normal mood and affect. Course Vital Signs Vital signs: Vital Signs Temperature 36.1 C L 06/06/23 23:37 Pulse Rate 79 06/06/23 23:37 Respiratory Rate 16 06/06/23 23:37 Blood Pressure 149/95 H 06/06/23 23:37 Pulse Oximetry 96 06/06/23 23:37 Oxygen Delivery Room Air 06/06/23 23:37 Temperature 36.1 C L 06/06/23 23:37 Pulse Rate 64 06/07/23 03:15 Respiratory Rate 14 06/07/23 03:15 Blood Pressure 117/76 06/07/23 03:15 Pulse Oximetry 99 06/07/23 03:15 Oxygen Delivery
[2023-06-07 00:48] LABS: Basophils Percent Auto 0.6 % (0.2-1.2); Eosinophils Absolute Auto 0.3 K/mm3 (0-0.3); Eosinophils Percent Auto 4.1 % (0-4.4); Hemoglobin 14.2 g/dL (14.0-18.0); Immature Granulocyte Absolute 0.01 K/mm3 (0.00-0.031); Immature Granulocyte Percent A 0.1 % (0-0.5); Lymphocytes Absolute Auto 1.99 K/mm3 (0.9-3.2); Lymphocytes Percent Auto 29.2 % (18.3-44.2); Mean Corpuscular HGB Conc 34.6 g/dl (32-36); Mean Corpuscular Hemoglobin 30.3 pg (26-34); Mean Corpuscular Volume 87.4 fl (80-100); Mean Platelet Volume 9.2 fl (7.4-10.4); Monocytes Absolute Auto 0.6 K/mm3 (0.1-0.6); Neutrophils Absolute Auto 3.9 K/mm3 (1.3-6.7); Platelet Count Result 223 k/mm3 (150-375); Red Blood Count 4.69 M/mm3 (4.6-6.20); Red Cell Distribution Width 12.6 % (11.5-14.5); White Blood Count 6.8 K/mm3 (4.5-10.0)
[2023-06-07 01:00] VITALS: BP 127/65; PULSE 67; RESP 15; O2SAT 100
[2023-06-07 01:05] LABS: Alanine Aminotransferase 26 U/L (6-50); Albumin Level 4.1 g/dL (3.5-5.1); Alkaline Phosphatase 80 U/L (38-126); Anion Gap 6 mmol/L (8-16); Aspartate Amino Transferase 26 U/L (17-59); Bilirubin,Total 0.7 mg/dL (0.2-1.3); Blood Urea Nitrogen 23 mg/dL (9-20); Calcium 9.2 mg/dL (8.4-10.2); Carbon Dioxide 27 mmol/L (22-30); Chloride 105 mmol/L (98-107); Estimated CRCL calculation 74 ml/min; Estimated Glomerular Filt Rate > 60; Glucose 121 mg/dL (65-110); Potassium 3.9 mmol/L (3.4-5.0); Sodium 138 mmol/L (137-145)
[2023-06-07 03:15] VITALS: BP 117/76; PULSE 64; RESP 14; O2SAT 99
--- NOTE | 2023-06-07 03:37 | PC.NURSE ---
Per triage nurse patient walked out
== END 2023-06-07 03:38 | disposition left against medical advice (07) ==
LOC: ANHED 06-07 03:30
PROVIDERS: Emergency Provider Emergency Medicine; PCP Internal Medicine
DX: R30.0 Dysuria (principal); E78.00 Pure hypercholesterolemia, unspecified; Z79.82 Long term (current) use of aspirin; N43.3 Hydrocele, unspecified; R93.813 Abnormal radiologic findings on diagnostic imaging of testicles, bilateral
CPT/HCPCS: 36415; 74176; 80053; 85025; 99284